=== PATIENT | female | born 2000 | race Caucasian/White ===

== ENCOUNTER 2022-10-11 02:20 | Day surgery (SDC) | payer BC, SELFPAY ==
--- NOTE | 2022-09-30 12:57 | PC.NURSE ---
Report to the Outpatient Waiting Room, entrance under the green pavilion located off [facility], at time 0600 on date 10/11/22. Planned Procedure Time: 0730. Time changes happen often and if your time is changed the preop area will call you the afternoon before. - You and your visitor will be asked to self-screen and do not enter if you have any COVID symptoms. - Only one visitor is requested with a max of two and NO children visitors are allowed at this time. - The patient visitor may be requested to leave or wait in car when not with patient due to distancing restrictions. - A mask is optional within the hospital. Patients may have clear liquids (water, carbonated beverages, clear teas, apple juice) until 3 hours prior to surgery with a maximum of 20 ounces. - No food from midnight until time of surgery Take the following medications with a SIP of water the morning of surgery: KEPPRA, TOPIRAMATE, VENLAFAXINE, VRAYLAR. CLONAZEPAM & DIAZEPAM IF NEEDED Medications to discontinue per physician: N/A Date to take last dose: N/A Please no make-up, nail venezuelan, hairspray, perfume, deodorant, or body powder the day of surgery. No jewelry (including any body piercings) or valuables the day of surgery, leave them at home. Please take a shower or bath the night before, or the morning of, surgery with an antibacterial soap. Wear comfortable, loose fitting clothing. - Jewelry must be removed prior to entering the operating room. Rings and piercings that are not removed may be cut off. - The hospital will not accept responsibility for valuables. - Please leave all valuables, including medications, at home the day of surgery. If you are going home after surgery, a licensed company tanker truck driver must drive you home. - NO public transportation without another adult if you receive anesthesia. - We recommend that an adult stay with you for 24 hours following discharge. - We also recommend that you do not drive, make important decision, drink alcoholic beverages, or take any drugs that were not prescribed by your health care provider for at least 24 hours after your discharge time. Follow any additional instructions given to you from your surgeon. If you or anyone in your household have experienced Covid symptoms in the past week, please notify your surgeon or the nurse liaison at the phone number below for possible testing. Telephone instructions given to PT - JAZZY LEWIS and asked if any additional questions and then verbalized understanding. Patient advised to call surgeon office or pre surgery nurse liaison [phone] if any additional questions.
[2022-10-11] VITALS (10 sets, daily range): BP systolic 108–124; BP diastolic 65–88; PULSE 72–98; RESP 15–20; TEMP 36.6–36.7; O2SAT 97–100
--- NOTE | 2022-10-11 07:15 | PM.IMHP ---
H&P: HPI History of Present Illness Date/Time: 10/11/22 07:15 Chief Complaint: chronic tonsillitis Narrative: pt has hx of chronic tonsillitis for years Review of Systems Review of Systems: All systems reviewed & are unremarkable except as noted in HPI and below PMFSH Past Medical History Medical History Anxiety Seizures Family History Family History Mother Hypertension Social History Social History (Updated 08/18/22 @ 09:32 by IAN Walker) Smoking status: Never smoker Alcohol intake: never Substance use: current Substance use type: marijuana Other substance usage details: daily Living arrangements: with family Additional living arrangements comments: single Occupation/Education: occupation 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 Gender identity (if verbalized by the patient): Female Sexual Orientation (if Verbalized by the Patient): Straight or Heterosexual Spiritual care concerns: No Meds Home Medications and Allergies Home Medications Medication Instructions Recorded Confirmed Type cetirizine 10 mg capsule (Zyrtec) 10 mg PO DAILY PRN Allergy Symptoms 07/07/22 09/30/22 History clonazepam 0.5 mg tablet 0.25 mg PO QHS PRN Anxiety 07/07/22 09/30/22 History diazepam 12.5 mg-15 mg-17.5 mg-20 5 mg RECTAL Q12H PRN Seizures 07/07/22 09/30/22 History mg rectal kit famotidine 10 mg tablet (Pepcid AC) 10 mg PO DAILY 07/07/22 09/30/22 History montelukast 10 mg tablet 10 mg PO DAILY 07/07/22 09/30/22 History (Singulair) venlafaxine 75 mg tablet 75 mg PO DAILY 07/07/22 09/30/22 History topiramate 25 mg sprinkle capsule 25 mg PO DAILY 08/18/22 09/30/22 History cariprazine 1.5 mg capsule 1.5 mg PO EVERY OTHER DAY 09/30/22 09/30/22 History (Vraylar) levetiracetam 500 mg tablet 500 mg PO BID 09/30/22 09/30/22 History Allergies Allergy/AdvReac Type Severity Reaction Status Date / Time No Known Allergies Allergy Verified 09/30/22 12:50 Exam Narrative: 2+ cryptic tonsils, rest of exam wnl Assessment and Plan Assessment and plan (1) Chronic tonsillitis: Code(s): J35.01 - Chronic tonsillitis Status: Acute Plan Daisy has chronic tonsillitis, here for tonsillectomy. r/b/a reviewed, pt understands and agrees to proceed. refer to outpt H&P for full details.
--- NOTE | 2022-10-11 07:17 | WPDHPUPDATE1 ---
History and Physical Update Update Date/Time: 10/11/22 07:17 History and Physical has been reviewed, including an updated exam of the patient. There are NO changes in the patient's condition. Risks, benefits, and alternatives have been discussed and questions answered. Patient agrees to proceed with procedure.
[2022-10-11] MEDS: ACETAMINOPHEN 500 MG TABLET 1000 MG PO (07:41)
[2022-10-11] MEDS: LACTATED RINGERS 1,000 ML 30 ML IV CONT (07:49)
--- NOTE | 2022-10-11 08:16 | WPDANESEPPF ---
Anes - Initial Pre Proc Eval Procedure: Operation Date: 10/11/22 07:30 Proposed Procedures p Bilateral Tonsillectomy - Joel Chapin MD Date/Time: 10/11/22 08:16 Surgeon: Joel Chapin MD Pre Op Diagnosis: Chronic Tonsillitis, Tonsil Hypertrophy Patient Data Age: 22 Gender: F Height: 1.55 m Weight: 71.85 kg Last Vital Signs Temp 36.7 C 10/11/22 07:25 Pulse 72 10/11/22 07:25 Resp 16 10/11/22 07:25 BP 110/65 10/11/22 07:25 Pulse Ox 100 10/11/22 07:25 O2 Del Method Room Air 10/11/22 07:25 Allergies Allergy/AdvReac Type Severity Reaction Status Date / Time No Known Allergies Allergy Verified 10/11/22 07:36 Home Medications Medication Instructions Recorded Confirmed Type cetirizine 10 mg capsule (Zyrtec) 10 mg PO DAILY PRN Allergy Symptoms 07/07/22 10/11/22 History clonazepam 0.5 mg tablet 0.25 mg PO QHS PRN Anxiety 07/07/22 09/30/22 History diazepam 12.5 mg-15 mg-17.5 mg-20 5 mg RECTAL Q12H PRN Seizures 07/07/22 09/30/22 History mg rectal kit famotidine 10 mg tablet (Pepcid AC) 10 mg PO DAILY 07/07/22 10/11/22 History montelukast 10 mg tablet 10 mg PO DAILY 07/07/22 10/11/22 History (Singulair) venlafaxine 75 mg tablet 75 mg PO DAILY 07/07/22 10/11/22 History topiramate 25 mg sprinkle capsule 25 mg PO DAILY 08/18/22 10/11/22 History cariprazine 1.5 mg capsule 1.5 mg PO EVERY OTHER DAY 09/30/22 10/11/22 History (Vraylar) levetiracetam 500 mg tablet 500 mg PO BID 09/30/22 10/11/22 History Patient hx anesthesia problems: none Family hx anesthesia problems: none Results Review: All pre-operative results and documents have been reviewed as part of the pre-operative evaluation. 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 Gender identity (if verbalized by the patient): Female Sexual Orientation (if Verbalized by the Patient): Straight or Heterosexual Spiritual care concerns: No Anes - Eval Final PreProcedure Day of Procedure 10/11/22 08:16 Patient weight: obese Heart: regular rate and rhythm Lungs: clear to auscultation Airway: Mallampati scale class II Neurological: alert and oriented Last oral intake: >/= 8 hours ASA classification: III Emergent: no Anesthetic plan: proceed Anesthesia type and monitoring: general ETT and standard monitoring Results Review: All pre-operative results and documents have been reviewed as part of the pre-operative evaluation. Informed Consent: The patient's anesthetic plan and its attendant risks and benefits were discussed with the patient/family/POA. Questions were solicited and answers provided to the satisfaction of the patient/family/POA.
--- NOTE | 2022-10-11 09:37 | W.PM.PROC2 ---
Procedure Note - Detailed Date of Procedure 10/11/22 Pre-op Diagnosis Chronic Tonsillitis, Tonsil Hypertrophy Post-op Diagnosis Same Procedure Performed tonsillectomy Surgeon Joel Chapin MD Anesthesia General Indications chronic tonsillitis Findings 3+ cryptic tonsils Description of Procedure DESCRIPTION OF PROCEDURE: On the date of procedure the patient was met in the preoperative area and risk and benefits of the procedure reviewed with the patient who elected to proceed with surgery. The patient was brought back to the room by the anesthesia team and placed under general endotracheal anesthesia. Once an adequate plane of anesthesia was obtained a timeout was performed to assure the patient identification the procedure to be performed were correct. The patient was then prepped and draped in the normal fashion for tonsillectomy. A head wrap and shoulder roll were placed. A Olaf-Matty retractor was inserted into the patient's oral cavity and the patient was suspended from the Jackson stand. The left tonsil grasped with a curved tonsillar tenaculum retracted medially and removed with electrocautery set on 10 standard. After the tonsil was removed the tonsillar fossa was inspected and no bleeding was noted. The right tonsil was then grasped with a curved tenaculum and retracted medially and removed in an identical manner. The tonsillar fossa was inspected and hemostasis was obtained with suction bovie electrocautery. The patient was taken out of suspension and then placed back into suspension. The tonsillar fossas were once again inspected and no bleeding was noted. A tonsil sponge was used to gently abrade the area and no bleeding was noted. The patient was removed from suspension. The Olaf-Matty retractor was removed from the patient's oral cavity. There was no damage to the patient's teeth or lips. Care of the patient was then returned to anesthesia who extubated in the operating room and transferred the patient to recovery in stable condition without complication. Estimated Blood Loss 10 Drains No Packing No Pathology Yes (right and left tonsil) Complications No immediate complications Condition Stable Disposition PACU
[2022-10-11] MEDS: fentaNYL CITRATE INJ (*CRX) 100 MCG/2 ML VIAL 25 MCG IV PUSH (09:53)
[2022-10-11] MEDS: oxyCODONE HCL (*CRX) 5 MG TAB IR PO (10:39)
== END 2022-10-11 11:17 | disposition home or self-care (01) ==
PROVIDERS: PCP Pediatrics; Visit Provider Otolaryngology
PROC: (CPT 42826; principal; 2022-10-11 07:30)
DX: J35.01 Chronic tonsillitis (principal); G40.909 Epilepsy, unspecified, not intractable, without status epilepticus; F41.9 Anxiety disorder, unspecified; F12.90 Cannabis use, unspecified, uncomplicated; E66.9 Obesity, unspecified
CPT/HCPCS: 42826; 88302; A9270; J0330; J1100; J2250; J2405; J2704; J3010; J7120

== ENCOUNTER 2023-01-21 12:56 | Outpatient (CLI) | payer BC, SELFPAY ==
--- NOTE | ~2023-01-21 | CT_ITS ---
EXAMINATION: CT BRAIN W/O DATE: 01/21/2023 13:15 INDICATION: Migraine headaches TECHNIQUE: Computed tomography (CT) of the head and sinuses was performed without intravenous contras t. The dose-length product was 726.40 mGy-cm. Automated exposure control and iterative reconstruction technique were employed. COMPARISON: CT dated 09/19/2017 FINDINGS: Normal brain parenchymal volume for age. Normal hsu-white differentiation. No acute intrac ranial hemorrhage, infarction, mass or mass effect. No ventriculomegaly or midline shift. Midline sagittal images demonstrate a normal corpus callosum, c raniovertebral junction and sella turcica. Basilar cisterns are patent. Paranasal sinuses and mastoids are pneumatized. There is a small mucous retention cyst of the right m axillary sinus. The ostiomeatal units are patent. Rightward nasal septal deviation. No depressed skul l fractures. IMPRESSION: 1. No acute intracranial abnormality. 2: Small mucous retention cyst right maxillary sinus. Reviewed, dictated and finalized at location B.
== END 2023-01-21 12:57 ==
LOC: GOSHIMG 12:57
PROVIDERS: PCP Nurse Practitioner Family; Visit Provider Nurse Practitioner Family
DX: G43.909 Migraine, unspecified, not intractable, without status migrainosus (principal); R93.0 Abnormal findings on diagnostic imaging of skull and head, not elsewhere classified
CPT/HCPCS: 70450; 70486

== ENCOUNTER 2023-04-07 08:31 | Outpatient (CLI) | payer BC, SELFPAY ==
[2023-04-07 13:04] LABS: Basophils Absolute Auto 0.1 K/mm3 (0.0-0.1); Basophils Percent Auto 0.5 % (0.2-1.2); Eosinophils Absolute Auto 0.2 K/mm3 (0-0.3); Eosinophils Percent Auto 1.7 % (0-4.4); Hematocrit 37.7 % (37.0-47.0); Hemoglobin 12.3 g/dL (12.0-15.0); Immature Granulocyte Absolute 0.03 K/mm3 (0.00-0.031); Immature Granulocyte Percent A 0.3 % (0-0.5); Lymphocytes Absolute Auto 2.11 K/mm3 (0.9-3.2); Mean Corpuscular HGB Conc 32.6 g/dl (32-36); Mean Corpuscular Volume 88.9 fl (80-100); Mean Platelet Volume 10.7 fl (7.4-10.4); Monocytes Absolute Auto 0.8 K/mm3 (0.1-0.6); Monocytes Percent Auto 7.9 % (2.6-8.5); Neutrophils Absolute Auto 6.9 K/mm3 (1.3-6.7); Neutrophils Percent Auto 68.6 % (45.5-73.1); Platelet Count Result 323 k/mm3 (150-375); Red Blood Count 4.24 M/mm3 (4.2-5.4); Red Cell Distribution Width 12.7 % (11.5-14.5)
[2023-04-07 13:44] LABS: Alanine Aminotransferase 16 U/L (6-35); Albumin Level 4.2 g/dL (3.5-5.1); Alkaline Phosphatase 78 U/L (38-126); Anion Gap 11 mmol/L (8-16); Aspartate Amino Transferase 40 U/L (14-36); Bilirubin,Total 0.2 mg/dL (0.2-1.3); Blood Urea Nitrogen 9 mg/dL (7-17); Calcium 9.2 mg/dL (8.4-10.2); Carbon Dioxide 25 mmol/L (22-30); Chloride 105 mmol/L (98-107); Estimated Glomerular Filt Rate > 60; Glucose 94 mg/dL (65-110); Potassium 4.4 mmol/L (3.4-5.0); Sodium 141 mmol/L (137-145)
[2023-04-07 13:59] LABS: Thyroid Stimulating Hormone 0.491 uIU/mL (0.465-4.680)
== END 2023-04-07 08:32 | disposition home or self-care (01) ==
LOC: ANHGOSHLAB 08:32
PROVIDERS: PCP Family Medicine; Visit Provider Nurse Practitioner Family
DX: R42 Dizziness and giddiness (principal); Z13.21 Encounter for screening for nutritional disorder; Z13.29 Encounter for screening for other suspected endocrine disorder; I10 Essential (primary) hypertension; R53.83 Other fatigue
CPT/HCPCS: 36415; 80053; 82306; 84443; 85025

== ENCOUNTER 2023-08-25 10:02 | Outpatient (CLI) | payer BC, SELFPAY ==
[2023-08-25 20:13] LABS: Alanine Aminotransferase 27 U/L (6-35); Albumin Level 4.4 g/dL (3.5-5.1); Alkaline Phosphatase 80 U/L (38-126); Anion Gap 9 mmol/L (8-16); Aspartate Amino Transferase 25 U/L (14-36); Bilirubin,Total 0.2 mg/dL (0.2-1.3); Blood Urea Nitrogen 9 mg/dL (7-17); Calcium 9.3 mg/dL (8.4-10.2); Carbon Dioxide 25 mmol/L (22-30); Chloride 107 mmol/L (98-107); Estimated Glomerular Filt Rate > 60; Glucose 93 mg/dL (65-110); Potassium 4.2 mmol/L (3.4-5.0); Sodium 141 mmol/L (137-145)
[2023-08-25 20:29] LABS: Thyroid Stimulating Hormone 0.989 uIU/mL (0.465-4.680)
[2023-08-25 20:34] LABS: Basophils Absolute Auto 0.1 K/mm3 (0.0-0.1); Basophils Percent Auto 0.5 % (0.2-1.2); Eosinophils Absolute Auto 0.2 K/mm3 (0-0.3); Eosinophils Percent Auto 1.9 % (0-4.4); Hematocrit 37.4 % (37.0-47.0); Hemoglobin 12.3 g/dL (12.0-15.0); Immature Granulocyte Absolute 0.03 K/mm3 (0.00-0.031); Immature Granulocyte Percent A 0.3 % (0-0.5); Lymphocytes Absolute Auto 2.32 K/mm3 (0.9-3.2); Lymphocytes Percent Auto 25.1 % (18.3-44.2); Mean Corpuscular HGB Conc 32.9 g/dl (32-36); Mean Corpuscular Hemoglobin 28.9 pg (26-34); Mean Corpuscular Volume 87.8 fl (80-100); Mean Platelet Volume 10.2 fl (7.4-10.4); Monocytes Absolute Auto 0.6 K/mm3 (0.1-0.6); Monocytes Percent Auto 6.9 % (2.6-8.5); Neutrophils Percent Auto 65.3 % (45.5-73.1); Platelet Count Result 345 k/mm3 (150-375); Red Blood Count 4.26 M/mm3 (4.2-5.4); Red Cell Distribution Width 12.8 % (11.5-14.5); White Blood Count 9.2 K/mm3 (4.5-10.0)
[2023-08-25 22:21] LABS: Hemoglobin A1C 5.5 % (<5.7)
[2023-08-28 12:06] LABS: DHEA-Sulfate 145 mcg/dL (51-321)
[2023-08-30 13:00] LABS: Testosterone Free 2.4 pg/mL (0.1-6.4); Testosterone Total 15 ng/dL (2-45)
[2023-08-30 14:52] LABS: Prolactin 10.8 ng/mL (***)
== END 2023-08-25 10:03 | disposition home or self-care (01) ==
LOC: ANHGOSHLAB 10:03
PROVIDERS: PCP Family Medicine; Visit Provider Nurse Practitioner Family
DX: F41.9 Anxiety disorder, unspecified (principal); R73.03 Prediabetes; R63.5 Abnormal weight gain; R53.83 Other fatigue; R74.8 Abnormal levels of other serum enzymes; Z84.2 Family history of other diseases of the genitourinary system; Z13.29 Encounter for screening for other suspected endocrine disorder
CPT/HCPCS: 36415; 80053; 82627; 83036; 84146; 84402; 84403; 84443; 85025